=== PATIENT | female | born 1965 | race Caucasian/White ===

== ENCOUNTER 2020-01-11 23:53 | Emergency (ER) | payer OTHER, SELFPAY ==
--- NOTE | ~2020-01-11 | CT_ITS ---
EXAMINATION: CT abdomen pelvis wo con DATE: 01/12/2020 00:28 INDICATION: Right flank pain TECHNIQUE: Computed tomography (CT) of the abdomen and pelvis was performed without intravenous contr ast. Automated exposure control and iterative reconstruction technique were employed. Exam dose: 892 .64 mGy-cm total exam DLP. COMPARISON: None. FINDINGS: Normal heart size. No pericardial or pleural effusion. The lung bases are clear of infiltra te or consolidation. The liver, gallbladder, bile ducts, spleen, pancreas, pancreatic duct and adrenal glands appear clif l. No renal mass lesion is evident on this limited noncontrast examination. There is an approximately 4 mm nonobstructing lower pole left renal calculus. There is mild right hydroureteronephrosis. No obstructing calculus is evident. Consider recently pass ed urinary tract calculus versus infectious process. Correlation with urinalysis is recommended. There is mild atherosclerotic calcification of the abdominal aorta. No abdominal aortic aneurysm. No intraperitoneal or retroperitoneal or pelvic mass lesion or adenopathy or ascites. The urinary bladder is unremarkable. There is a prominent calcified uterine fibroid. The uterus and a dnexal areas are otherwise unremarkable. Normal appendix. No bowel obstruction, bowel wall thickening, pneumatosis or intraperitoneal free air . Small fat-containing umbilical hernia. Severe degenerative disease at L5-S1. Grade 1 anterolisthesis at L5-S1 secondary to bilateral L5 pars interarticularis defects. 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 Reviewed, dictated and finalized at [facility]. 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
[2020-01-12 00:03] VITALS: BP 111/97; PULSE 85; RESP 18; TEMP 36.6; O2SAT 97
[2020-01-12] MEDS: KETOROLAC 30 MG/ML VIAL (*BKC) IV PUSH (00:18)
[2020-01-12] MEDS: SODIUM CHLORIDE 0.9% IV 1,000 ML 999 ML IV CONT (00:19)
[2020-01-12] MEDS: ONDANSETRON INJ 4 MG/2 ML VIAL IV PUSH (00:19)
[2020-01-12 00:29] LABS: Basophils Percent Auto 0.5 % (0.2-1.2); Eosinophils Absolute Auto 0.2 K/mm3 (0-0.3); Eosinophils Percent Auto 2.9 % (0-4.4); Hematocrit 42.6 % (37.0-47.0); Hemoglobin 14.5 g/dL (12.0-15.0); Immature Granulocyte Absolute 0.02 K/mm3 (0.00-0.031); Immature Granulocyte Percent A 0.3 % (0-0.5); Lymphocytes Absolute Auto 2.67 K/mm3 (0.9-3.2); Mean Corpuscular Hemoglobin 31.6 pg (26-34); Mean Corpuscular Volume 92.8 fl (80-100); Mean Platelet Volume 10.9 fl (7.4-10.4); Monocytes Absolute Auto 0.6 K/mm3 (0.1-0.6); Monocytes Percent Auto 7.4 % (2.6-8.5); Neutrophils Absolute Auto 4.3 K/mm3 (1.3-6.7); Neutrophils Percent Auto 54.9 % (45.5-73.1); Platelet Count Result 193 k/mm3 (150-375); Red Blood Count 4.59 M/mm3 (4.2-5.4); Red Cell Distribution Width 12.7 % (11.5-14.5); White Blood Count 7.9 K/mm3 (4.5-10.0)
[2020-01-12 00:38] LABS: Add Urine Microscopic? YES; Appearance Urine Clear (Clear); Bilirubin Urine Negative (Negative); Blood Urine 2+ (Negative); Color Urine Amber (Yellow); Glucose Urine UA Negative (Negative); Ketones Urine Negative (Negative); Leukocyte Esterase Ur Negative LEU/UL (Negative); Nitrate Urine Positive (Negative); Protein Urine Negative (Negative); RBC Urine 0-2 /hpf (0-2); Specific Grav Ur 1.017 (1.001-1.035); Squamous Epithelial Cell Urine Rare /hpf (Few); WBC Urine 0-3 /hpf
[2020-01-12 00:43] LABS: Alanine Aminotransferase 25 U/L (4-35); Albumin Level 4.4 g/dL (3.5-5.1); Alkaline Phosphatase 72 U/L (38-126); Anion Gap 9 mmol/L (8-16); Aspartate Amino Transferase 25 U/L (14-36); Bilirubin,Total 0.4 mg/dL (0.2-1.3); Blood Urea Nitrogen 17 mg/dL (7-17); Calcium 9.4 mg/dL (8.4-10.2); Carbon Dioxide 27 mmol/L (22-30); Chloride 104 mmol/L (98-107); Estimated CRCL calculation 44 ml/min; Estimated Glomerular Filt Rate 36; Glucose 110 mg/dL (65-105); Potassium 4.2 mmol/L (3.4-5.0); Sodium 140 mmol/L (137-145)
--- NOTE | 2020-01-12 01:19 | ED.GENADULT ---
HPI - General Adult General Chief complaint: Back Pain/Injury Stated complaint: back pain Time Seen by Provider: 01/12/20 00:04 History of Present Illness HPI narrative: Patient is a 54-year-old female presents emerge department with chief complaint of right flank pain. The patient states became began suddenly states that it is sharp states is not improved by anything. Patient reports she had a little bit of nausea with this denies fever states she is also had some urinary frequency. The patient reports that the pain is not worsened by anything denies fever denies chills. Related Data Home Medications Medication Instructions Recorded Confirmed loratadine-pseudoephedrine 1 tablet PO Q12H 01/12/20 01/12/20 [Alavert D-12 Allergy-Sinus] Allergies Allergy/AdvReac Type Severity Reaction Status Date / Time No Known Allergies Allergy Unverified 01/12/20 00:07 Review of Systems Review of Systems: Narrative: CONSTITUTIONAL: Denies fever, chills, or sweats. EYES: Denies visual changes, redness, or discharge. ENT: Denies rhinorrhea, congestion, sore throat, or otalgia. CARDIOVASCULAR: Denies chest pain, palpitations, or edema. RESPIRATORY: Denies cough or dyspnea. GASTROINTESTINAL: Denies abdominal pain, nausea, vomiting, or diarrhea. GENITOURINARY: Denies dysuria or hematuria. SKIN: Denies rash or itching. MUSCULOSKELETAL: Denies back pain, joint pain, or myalgia. NEUROLOGIC: Denies headache, numbness, or weakness. PSYCHIATRIC: Denies anxiety or depression. A 10 system review of systems was completed on the patient and is negative except for what is stated in the HPI. Nursing and ancillary documentation was reviewed. [facility] Family History Family History Mother Patient's mother is in good health Father Patient's father is in good health Sibling Patient's sister is in good health Patient's brother is in good health Social History Social History Smoking status: Current every day smoker Alcohol intake: never Gender identity (if verbalized by the patient): Female Comments Patient has past medical history significant for a prior kidney infection Exam Narrative: Exam Narrative: GENERAL: Well-appearing, well-nourished, and in no acute distress. HEAD: Normocephalic, atraumatic. EYES: PERRLA and EOMI. ENT: Nares clear, no rhinorrhea or epistaxis. Mucous membranes moist. NECK: Supple. CHEST: Clear to auscultation. No respiratory distress. HEART: Regular rate and rhythm. No murmur heard. Normal peripheral pulses. ABDOMEN: Soft, nontender, nondistended, normal active bowel sounds. EXTREMITIES: Normal range of motion. No edema. SKIN: Warm, dry, no rash. NEURO: No focal deficits. Alert and oriented x3. PSYCH: Normal mood and affect. Course Course Emergency Course: Patient is receiving IV fluids and also received IV Toradol. The patient is feeling much better at this time CT scan of the abdomen pelvis showed evidence of right-sided hydronephrosis and hydroureter without evidence of obstructing stone. Urinalysis did show some nitrate and there was 2+ blood. Electrolytes showed a creatinine of 1.5. Vital Signs Vital signs: Vital Signs Temperature 36.6 C 01/12/20 00:03 Pulse Rate 85 01/12/20 00:03 Respiratory Rate 18 01/12/20 00:03 Blood Pressure 111/97 H 01/12/20 00:03 Pulse Oximetry 97 01/12/20 00:03 Temperature 36.6 C 01/12/20 00:03 Pulse Rate 85 01/12/20 00:03 Respiratory Rate 18 01/12/20 00:03 Blood Pressure 111/97 H 01/12/20 00:03 Pulse Oximetry 97 01/12/20 00:03 Medical Decision Making Vital Signs Vital Signs: Vital Signs Temperature 36.6 C 01/12/20 00:03 Pulse Rate 85 01/12/20 00:03 Respiratory Rate 18 01/12/20 00:03 Blood Pressure 111/97 H 01/12/20 00:03 Pulse Oximetry 97 01/12/20 00:03 Temperature 36.6 C
[2020-01-12] MEDS: HYDROcodone/acetaminophen (*CRX) 5-325 MG TABLET 2 TAB PO (01:51)
[2020-01-12 02:00] VITALS: TEMP 37
== END 2020-01-12 02:01 | disposition home or self-care (01) ==
PROVIDERS: Emergency Provider Emergency Medicine; PCP Family Medicine
DX: N39.0 Urinary tract infection, site not specified (principal); N23 Unspecified renal colic; N13.30 Unspecified hydronephrosis
CPT/HCPCS: 36415; 74176; 80053; 81001; 85025; 96361; 96374; 96375; 99284; A9270; J1885; J2405; J7030

== ENCOUNTER 2020-05-21 03:19 | Emergency (ER) | payer OTHER, SELFPAY ==
--- NOTE | 2020-05-21 03:30 | PC.NURSE ---
RN in to assess pt. Pt. states she vomited in toilet on the way to room. pt. states she feels better. pt. denies pain. Rates pain 0/10. Pt. states she wants to go home and does not wish to be tx. Pt. notified of the risks of not being seen by ERP. Pt. also educated on needing to return to the ED if ss worsen.
== END 2020-05-22 00:42 | disposition left against medical advice (07) ==
LOC: ANHED 04:02
PROVIDERS: PCP Family Medicine
DX: R11.2 Nausea with vomiting, unspecified (principal)
CPT/HCPCS: 99199

== ENCOUNTER 2021-05-06 12:16 | Emergency (ER) | payer BC, SELFPAY ==
--- NOTE | ~2021-05-06 | CT_ITS ---
EXAMINATION: CT abdomen pelvis w con DATE: 05/06/2021 13:28 INDICATION: Left lower quadrant abdominal pain. TECHNIQUE: Computed tomography (CT) of the abdomen and pelvis was performed with 100 mL Omnipaque-350 intravenous contrast. Automated exposure control and iterative reconstruction technique were employe d. The dose-length product was 1179.11 mGy-cm. COMPARISON: 01/12/2020 FINDINGS: Mild dependent atelectasis in the bilateral lower lobes. Heart size is normal. No pericardial or pleu ral effusion. Small focus of hepatic steatosis at the ligamentum teres. Gallbladder, spleen, pancreas , bilateral adrenal glands and right kidney are normal. 3 mm stone at the left ureterovesicular junct ion with mild left hydronephrosis and slightly delayed left nephrogram. Bowels including the appendix are normal. Coarsely calcified 2.4 cm degenerated fibroid at the uterine fundus. Partially decompres sed bladder and bilateral adnexa are unremarkable. No free intraperitoneal gas or fluid. No pathologi joo enlarged abdominal or pelvic lymphadenopathy. L5 spondylolysis with bilateral pars interarticul alex defects 5 mm anterolisthesis on S1 and severe L5-S1 disc height loss. Mild scoliosis with modera te spondylosis in the more cephalad thoracolumbar spine. IMPRESSION: 1. Obstructing 3 mm stone at the left ureterovesicular junction with mild left hydroureteronephrosis and mildly delayed left nephrogram. 2. Degenerated uterine fibroid. 5. L5 spondylolysis with severe spondylosis and grade 1 anterolisthesis on S1. Reviewed, dictated and finalized at [facility].
[2021-05-06 12:18] VITALS: BP 143/115; PULSE 100; RESP 14; TEMP 36.6; O2SAT 97
[2021-05-06 12:43] LABS: Basophils Absolute Auto 0.1 K/mm3 (0.0-0.1); Basophils Percent Auto 0.6 % (0.2-1.2); Eosinophils Absolute Auto 0.2 K/mm3 (0-0.3); Eosinophils Percent Auto 2.4 % (0-4.4); Hematocrit 45.1 % (37.0-47.0); Hemoglobin 14.7 g/dL (12.0-15.0); Immature Granulocyte Absolute 0.03 K/mm3 (0.00-0.031); Immature Granulocyte Percent A 0.4 % (0-0.5); Lymphocytes Absolute Auto 2.41 K/mm3 (0.9-3.2); Lymphocytes Percent Auto 28.4 % (18.3-44.2); Mean Corpuscular HGB Conc 32.6 g/dl (32-36); Mean Corpuscular Hemoglobin 29.9 pg (26-34); Mean Corpuscular Volume 91.7 fl (80-100); Mean Platelet Volume 10.2 fl (7.4-10.4); Monocytes Absolute Auto 0.6 K/mm3 (0.1-0.6); Monocytes Percent Auto 6.9 % (2.6-8.5); Neutrophils Absolute Auto 5.2 K/mm3 (1.3-6.7); Neutrophils Percent Auto 61.3 % (45.5-73.1); Platelet Count Result 232 k/mm3 (150-375); Red Blood Count 4.92 M/mm3 (4.2-5.4); Red Cell Distribution Width 12.9 % (11.5-14.5); White Blood Count 8.5 K/mm3 (4.5-10.0)
[2021-05-06] MEDS: SODIUM CHLORIDE 0.9% IV 1,000 ML 999 ML IV CONT (12:51)
[2021-05-06 12:55] LABS: Alanine Aminotransferase 26 U/L (4-35); Albumin Level 4.7 g/dL (3.5-5.1); Alkaline Phosphatase 78 U/L (38-126); Anion Gap 3 mmol/L (8-16); Aspartate Amino Transferase 27 U/L (14-36); Bilirubin,Total 0.5 mg/dL (0.2-1.3); Blood Urea Nitrogen 14 mg/dL (7-17); Calcium 9.5 mg/dL (8.4-10.2); Carbon Dioxide 29 mmol/L (22-30); Chloride 106 mmol/L (98-107); Estimated CRCL calculation 63 ml/min; Estimated Glomerular Filt Rate 58; Glucose 137 mg/dL (65-110); Lipase 65 U/L (23-300); Potassium 4.9 mmol/L (3.4-5.0); Sodium 138 mmol/L (137-145)
--- NOTE | 2021-05-06 13:06 | PC.NURSE ---
Lab called - not enough urine to run for results. Dr Dodd wants to send another sample after fluids infused. Told lab to reject UA so ER can send another sample
--- NOTE | 2021-05-06 13:08 | ED.ABDPAIN ---
HPI - Abdominal Pain General Chief Complaint: Abdominal Pain Stated Complaint: abdominal pain Time Seen by Provider: 05/06/21 12:37 Source: patient Mode of arrival: ambulatory Limitations: no limitations History of Present Illness HPI narrative: Patient is 55 years old white female came to the emergency room with sudden onset of left abdominal pain started 9 AM today. Associated with nausea and vomiting, patient unable to find a comfortable position to get better. Strong family history of kidney stone. Patient denies any fever, chills, chest pain, shortness of breath or back pain. Related Data Home Medications Medication Instructions Recorded Confirmed loratadine-pseudoephedrine 1 tablet PO Q12H 01/12/20 05/06/21 [Alavert D-12 Allergy-Sinus] Allergies Allergy/AdvReac Type Severity Reaction Status Date / Time No Known Allergies Allergy Verified 05/06/21 12:29 Review of Systems Review of Systems: CONSTITUTIONAL: Denies fever, chills, or sweats. EYES: Denies visual changes, redness, or discharge. ENT: Denies rhinorrhea, congestion, sore throat, or otalgia. CARDIOVASCULAR: Denies chest pain, palpitations, or edema. RESPIRATORY: Denies cough or dyspnea. GASTROINTESTINAL: Denies abdominal pain, nausea, vomiting, or diarrhea. GENITOURINARY: Denies dysuria or hematuria. SKIN: Denies rash or itching. MUSCULOSKELETAL: Denies back pain, joint pain, or myalgia. NEUROLOGIC: Denies headache, numbness, or weakness. PSYCHIATRIC: Denies anxiety or depression. [facility] Family History Family History Mother Patient's mother is in good health Father Patient's father is in good health Sibling Patient's sister is in good health Patient's brother is in good health Social History Social History Smoking status: Current every day smoker Alcohol intake: never Gender identity (if verbalized by the patient): Female Exam Narrative: General appearance: Well-developed, well-nourished, restless, pacing the floor, at the bedside Skin: Normal color Head: Normocephalic, nontraumatic Eyes: Clear conjunctiva ENT: Oropharynx normal, ears normal, nose normal Neck: Supple, nontender Chest and respiratory: Airway patent, no respiratory distress, no accessory muscle use Heart: Regular rate/rhythm Abdomen: Soft, nontender, no organomegaly, quiet bowel sounds Vascular: Normal peripheral pulses, normal capillary refill. 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, no gross motor deficit Course Vital Signs Vital signs: Vital Signs Temperature 36.6 C 05/06/21 12:18 Pulse Rate 100 05/06/21 12:18 Respiratory Rate 14 05/06/21 12:18 Blood Pressure 143/115 H 05/06/21 12:18 Pulse Oximetry 97 05/06/21 12:18 Temperature 36.6 C 05/06/21 12:18 Pulse Rate 100 05/06/21 12:18 Respiratory Rate 14 05/06/21 12:18 Blood Pressure 143/115 H 05/06/21 12:18 Pulse Oximetry 97 05/06/21 12:18 MDM - Abdominal Pain Lab Data Result diagrams: 05/06/21 12:34 05/06/21 12:34 Labs: Lab Results 05/06/21 05/06/21 05/06/21 Range/Units 12:34 12:34 12:53 WBC 8.5 (4.5-10.0) K/mm3 RBC 4.92 (4.2-5.4) M/mm3 Hgb 14.7 (12.0-15.0) g/dL Hct 45.1 (37.0-47.0) % MCV 91.7 (80-100) fl MCH 29.9 (26-34) pg MCHC 32.6 (32-36) g/dl RDW 12.9 (11.5-14.5) % Plt Count 232 (150-375) k/mm3 MPV 10.2 (7.4-10.4) fl Immature Gran % (Auto) 0.4 (0-0.5) % Neut % (Auto) 61.3 (45.5-73.1) % Lymph % (Auto)
[2021-05-06] MEDS: HYDROmorphone HCL INJ (*CRX) 1 MG/ML SYR 0.5 MG IV PUSH (13:13)
[2021-05-06] MEDS: ONDANSETRON INJ 4 MG/2 ML VIAL IV PUSH (13:13)
[2021-05-06] MEDS: TAMSULOSIN HCL 0.4 MG CAPSULE PO (14:34)
[2021-05-06] MEDS: KETOROLAC 30 MG/ML VIAL (*BKC) IV PUSH (14:34)
--- NOTE | 2021-05-06 15:28 | PC.NURSE ---
waiting ua results. pending disposition
[2021-05-06 15:30] VITALS: BP 142/75; PULSE 57; RESP 16
[2021-05-06 15:32] LABS: Add Urine Microscopic? YES; Appearance Urine Clear (Clear); Bilirubin Urine Negative (Negative); Blood Urine 3+ (Negative); Color Urine Amber (Yellow); Glucose Urine UA Negative (Negative); Ketones Urine Negative (Negative); Leukocyte Esterase Ur Negative LEU/UL (Negative); Mucus Urine Rare /lpf; Nitrate Urine Positive (Negative); Protein Urine Negative (Negative); RBC Urine >75 /hpf (0-2); Squamous Epithelial Cell Urine Many /hpf (Few)
== END 2021-05-06 15:30 | disposition home or self-care (01) ==
PROVIDERS: Emergency Medicine; Emergency Provider Emergency Medicine
DX: N13.2 Hydronephrosis with renal and ureteral calculous obstruction (principal); F17.200 Nicotine dependence, unspecified, uncomplicated; D25.9 Leiomyoma of uterus, unspecified; M43.06 Spondylolysis, lumbar region
CPT/HCPCS: 36415; 74177; 80053; 81001; 81025; 83690; 85025; 96361; 96374; 96375; 99284; A9270; J1170; J1885; J2405; J7030; Q9967